=== PATIENT | male | born 1955 | race Caucasian/White ===

== ENCOUNTER 2021-04-13 15:03 | Inpatient (IN) ==
[2021-04-13] MEDS ORDERED: ceFAZolin 2,000 MG/50 ML DUPLEX IV ONE (16:30)
[2021-04-13] MEDS ORDERED: LIDOCAINE 2% 5 ML VIAL ONE (16:37)
[2021-04-13] MEDS ORDERED: fentaNYL 100 MCG/2 ML VIAL ONE (16:37)
[2021-04-13] MEDS ORDERED: MIDAZOLAM 2 MG/2 ML VIAL ONE (16:37)
[2021-04-13] MEDS ORDERED: ETOMIDATE 40 MG/20 ML VIAL IV ONE (16:38)
[2021-04-13] MEDS ORDERED: propofoL 200 MG/20 ML VIAL IV ONE (16:38)
[2021-04-13] MEDS ORDERED: SUCCINYLCHOLINE 200 MG/10 ML VIAL ONE (16:38)
[2021-04-13] MEDS ORDERED: ePHEDrine 50 MG/ML VIAL ONE (17:16)
[2021-04-13] MEDS ORDERED: ceFAZolin 1,000 MG VIAL ONE (17:43)
[2021-04-13] MEDS ORDERED: SEVOFLURANE 1 UNIT/15 MINUTE INH ONE (17:51)
[2021-04-13] MEDS ORDERED: ACETAMINOPHEN INJ 1,000 MG/100 ML VIAL IV ONE (17:54)
[2021-04-13] MEDS ORDERED: ALBUTEROL 2.5 MG/3 ML NEB RESP TX PRN (17:56)
[2021-04-13] MEDS ORDERED: ONDANSETRON 4 MG/2 ML VIAL IV PRN (17:56)
[2021-04-13] MEDS ORDERED: DEXTROSE 50% 25 GM/50 ML VIAL IV PRN (18:07)
[2021-04-13] MEDS ORDERED: GLUCAGON 1 MG VIAL IM PRN (18:07)
[2021-04-13] MEDS: PIPERACILLIN/TAZOBACTAM 3,375 MG in SODIUM CHLORIDE 0.9% 100 ML IV SCH (19:45)
[2021-04-13 19:46] LABS: Basophils # 0.1 10*3/uL (0.0-0.2); Basophils % 0.3 % (0.0-0.8); Eosinophils # 0.1 10*3/uL (0.0-0.87); Eosinophils % 0.7 % (0.00-10.9); Hematocrit 30.1 VOL% (42.0-52.0); Hemoglobin 8.7 GM/DL (14.0-18.0); Immature Granulocytes Absolute 0.15 #; Lymphocytes # 1.3 10*3/uL (1.4-4.0); Lymphocytes % 8.5 % (21.2-54.2); Mean Corpuscular HGB Conc 28.9 GM/DL (32-36); Mean Corpuscular Volume 74.3 FL (87-102); Mean Platelet Volume 10.6 FL (9.6-12.0); Monocytes % 7.4 % (1.7-12.7); Neutrophils % 82.1 % (38.7-73.9); Platelet Count 436 T/CUMM (130-400); Red Blood Count 4.05 MC/CUMM (3.8-5.5); Red Cell Distribution Width 19.9 % (9.3-17.3); White Blood Count 15.6 T/CUMM (4-12)
[2021-04-13 20:05] LABS: Alanine Aminotransferase 32 U/L (16-61); Albumin 2.1 G/DL (3.4-5.0); Alkaline Phosphatase 136 U/L (45-117); Aspartate Amino Transferase 28 U/L (0-37); Bilirubin,Total < 0.39 MG/DL (0.2-1.0); Blood Urea Nitrogen 23 MG/DL (7-18); Calcium 8.9 MG/DL (8.5-10.1); Carbon Dioxide 24 MMOL/L (21-32); Estimated Glom Filtration Rate 87 ML/MIN; Glucose 202 MG/DL (74-106); Osmolality,Calculated 273.5 MOS/KG (273-304); Potassium 4.3 MMOL/L (3.5-5.1); Sodium 132 MMOL/L (136-145); Total Protein 6.3 G/DL (6.4-8.2)
[2021-04-13] MEDS: SIMVASTATIN 20 MG TABLET PO SCH (21:14)
[2021-04-13] MEDS: SERTRALINE 50 MG TABLET PO SCH (21:14)
[2021-04-14] MEDS: INSULIN LISPRO 100 UNIT/ML SUBCUT SCH ×4 (00:17→17:31)
[2021-04-14] MEDS: PIPERACILLIN/TAZOBACTAM 3,375 MG in SODIUM CHLORIDE 0.9% 100 ML IV SCH ×3 (02:08→18:27)
[2021-04-14] MEDS ORDERED: DEXAMETHASONE 4 MG/1 ML VIAL ONE (06:44)
[2021-04-14] MEDS ORDERED: LIDOCAINE 2% 5 ML VIAL ONE (06:44)
[2021-04-14] MEDS ORDERED: ONDANSETRON 4 MG/2 ML VIAL ONE (06:44)
[2021-04-14] MEDS ORDERED: propofoL 200 MG/20 ML VIAL IV ONE (06:44)
[2021-04-14] MEDS ORDERED: MIDAZOLAM 2 MG/2 ML VIAL ONE (06:44)
[2021-04-14] MEDS ORDERED: fentaNYL 100 MCG/2 ML VIAL ONE (06:44)
[2021-04-14 06:46] LABS: Basophils # 0.1 10*3/uL (0.0-0.2); Basophils % 0.6 % (0.0-0.8); Eosinophils # 0.2 10*3/uL (0.0-0.87); Eosinophils % 1.7 % (0.00-10.9); Hematocrit 27.4 VOL% (42.0-52.0); Hemoglobin 8.1 GM/DL (14.0-18.0); Immature Granulocytes % 0.8 %; Immature Granulocytes Absolute 0.08 #; Lymphocytes # 0.7 10*3/uL (1.4-4.0); Lymphocytes % 6.9 % (21.2-54.2); Mean Corpuscular HGB Conc 29.6 GM/DL (32-36); Mean Corpuscular Volume 71.9 FL (87-102); Mean Platelet Volume 10.5 FL (9.6-12.0); Monocytes % 7.2 % (1.7-12.7); Neutrophils % 82.8 % (38.7-73.9); Platelet Count 435 T/CUMM (130-400); Red Blood Count 3.81 MC/CUMM (3.8-5.5); Red Cell Distribution Width 19.7 % (9.3-17.3); White Blood Count 9.8 T/CUMM (4-12)
[2021-04-14 06:47] LABS: Calcium 8.8 MG/DL (8.5-10.1); Osmolality,Calculated 276.4 MOS/KG (273-304); Potassium 4.5 MMOL/L (3.5-5.1)
[2021-04-14] MEDS ORDERED: SEVOFLURANE 1 UNIT/15 MINUTE INH ONE ×3 (06:47→08:53)
[2021-04-14] MEDS ORDERED: FAMOTIDINE 20 MG/2 ML VIAL IV STA (06:59)
[2021-04-14] MEDS ORDERED: PHENYLEPHRINE 1 MG/10 ML SYRINGE IV ONE (07:49)
[2021-04-14] MEDS ORDERED: ePHEDrine 50 MG/ML VIAL ONE (07:49)
[2021-04-14] MEDS ORDERED: SODIUM CHLORIDE 0.9% 1,000 ML IV ONE (08:12)
[2021-04-14] MEDS ORDERED: ROPIVACAINE 0.5% 30 ML VIAL ONE (08:16)
[2021-04-14] MEDS: LACTATED RINGERS 1,000 ML IV SCH ×2 (08:49→17:33)
[2021-04-14] MEDS: INSULIN GLARGINE 100 UNIT/ML SUBCUT SCH (08:49)
[2021-04-14] MEDS: AMIODARONE 200 MG TABLET PO SCH (12:09)
[2021-04-14 16:13] LABS: Basophils % 0.5 % (0.0-0.8); Hematocrit 25.4 VOL% (42.0-52.0); Hemoglobin 7.7 GM/DL (14.0-18.0); Immature Granulocytes Absolute 0.09 #; Lymphocytes # 0.5 10*3/uL (1.4-4.0); Lymphocytes % 5.2 % (21.2-54.2); Mean Corpuscular HGB Conc 30.3 GM/DL (32-36); Mean Corpuscular Volume 73.4 FL (87-102); Mean Platelet Volume 10.5 FL (9.6-12.0); Monocytes % 2.2 % (1.7-12.7); Neutrophils % 91.1 % (38.7-73.9); Platelet Count 420 T/CUMM (130-400); Red Blood Count 3.46 MC/CUMM (3.8-5.5); Red Cell Distribution Width 19.8 % (9.3-17.3); White Blood Count 8.6 T/CUMM (4-12)
[2021-04-14 16:40] LABS: Anisocytosis 2+; Band Neutrophils 1 % (0-10); Microcytosis 2+; Platelet Estimate Increased; Segmented Neutrophils 99 % (50-85); Total Cells Counted 100; Toxic Granulation 1+
[2021-04-14 16:41] LABS: Dohle Bodies Few
[2021-04-14] MEDS: MIDODRINE 5 MG TABLET PO SCH (17:30)
[2021-04-14] MEDS: FAMOTIDINE 20 MG/2 ML VIAL IV SCH (21:49)
[2021-04-14] MEDS: SIMVASTATIN 20 MG TABLET PO SCH (21:51)
[2021-04-14] MEDS: SERTRALINE 50 MG TABLET PO SCH (21:52)
[2021-04-14] MEDS: lamoTRIgine 25 MG TABLET PO SCH (21:52)
[2021-04-15] MEDS: INSULIN LISPRO 100 UNIT/ML SUBCUT SCH ×6 (01:48→22:58)
[2021-04-15] MEDS: LACTATED RINGERS 1,000 ML IV SCH ×3 (03:00→23:00)
[2021-04-15] MEDS: PIPERACILLIN/TAZOBACTAM 3,375 MG in SODIUM CHLORIDE 0.9% 100 ML IV SCH ×3 (03:04→17:56)
[2021-04-15 06:23] LABS: Basophils % 0.5 % (0.0-0.8); Eosinophils % 0.5 % (0.00-10.9); Hematocrit 25.8 VOL% (42.0-52.0); Hemoglobin 7.6 GM/DL (14.0-18.0); Immature Granulocytes % 1.4 %; Immature Granulocytes Absolute 0.11 #; Lymphocytes # 0.8 10*3/uL (1.4-4.0); Lymphocytes % 9.7 % (21.2-54.2); Mean Corpuscular HGB Conc 29.5 GM/DL (32-36); Mean Corpuscular Volume 72.3 FL (87-102); Mean Platelet Volume 10.3 FL (9.6-12.0); Monocytes % 9.1 % (1.7-12.7); Neutrophils % 78.8 % (38.7-73.9); Platelet Count 441 T/CUMM (130-400); Red Blood Count 3.57 MC/CUMM (3.8-5.5); Red Cell Distribution Width 19.9 % (9.3-17.3); White Blood Count 7.8 T/CUMM (4-12)
[2021-04-15 06:41] LABS: Calcium 8.5 MG/DL (8.5-10.1); Osmolality,Calculated 284.8 MOS/KG (273-304); Potassium 4.5 MMOL/L (3.5-5.1)
[2021-04-15] MEDS: FAMOTIDINE 20 MG/2 ML VIAL IV SCH ×2 (08:11→22:49)
[2021-04-15] MEDS: MIDODRINE 5 MG TABLET PO SCH ×3 (08:11→17:56)
[2021-04-15] MEDS: AMIODARONE 200 MG TABLET PO SCH (08:11)
[2021-04-15] MEDS: DUTASTERIDE 0.5 MG CAPSULE PO SCH (08:11)
[2021-04-15] MEDS: INSULIN GLARGINE 100 UNIT/ML SUBCUT SCH (08:14)
[2021-04-15] MEDS: SIMVASTATIN 20 MG TABLET PO SCH (22:51)
[2021-04-15] MEDS: SERTRALINE 50 MG TABLET PO SCH (22:51)
[2021-04-15] MEDS: lamoTRIgine 25 MG TABLET PO SCH (22:52)
[2021-04-16] MEDS: PIPERACILLIN/TAZOBACTAM 3,375 MG in SODIUM CHLORIDE 0.9% 100 ML IV SCH ×2 (02:21→09:33)
[2021-04-16 05:09] LABS: Calcium 8.7 MG/DL (8.5-10.1); Osmolality,Calculated 273.2 MOS/KG (273-304); Potassium 4.3 MMOL/L (3.5-5.1)
[2021-04-16 07:58] LABS: Basophils # 0.1 10*3/uL (0.0-0.2); Basophils % 0.8 % (0.0-0.8); Eosinophils # 0.3 10*3/uL (0.0-0.87); Eosinophils % 4.1 % (0.00-10.9); Hematocrit 27.6 VOL% (42.0-52.0); Hemoglobin 8.1 GM/DL (14.0-18.0); Immature Granulocytes % 1.8 %; Immature Granulocytes Absolute 0.11 #; Lymphocytes # 1.1 10*3/uL (1.4-4.0); Mean Corpuscular HGB Conc 29.3 GM/DL (32-36); Mean Corpuscular Volume 71.7 FL (87-102); Monocytes % 8.8 % (1.7-12.7); Neutrophils % 66.5 % (38.7-73.9); Platelet Count 522 T/CUMM (130-400); Red Blood Count 3.85 MC/CUMM (3.8-5.5); Red Cell Distribution Width 19.9 % (9.3-17.3); White Blood Count 6.2 T/CUMM (4-12)
[2021-04-16 08:22] LABS: Eosinophils 6 % (0-10); Lymphocytes 14 % (20-55); Platelet Estimate Increased; Segmented Neutrophils 71 % (50-85); Total Cells Counted 100
[2021-04-16 08:23] LABS: Hypochromasia 1+; Microcytosis 1+
[2021-04-16 08:30] LABS: Calcium 8.6 MG/DL (8.5-10.1); Potassium 4.4 MMOL/L (3.5-5.1)
[2021-04-16] MEDS ORDERED: INSULIN GLARGINE 100 UNIT/ML SUBCUT SCH (09:00)
[2021-04-16] MEDS: LACTATED RINGERS 1,000 ML IV SCH (09:23)
[2021-04-16] MEDS: FAMOTIDINE 20 MG/2 ML VIAL IV SCH (09:24)
[2021-04-16] MEDS: INSULIN LISPRO 100 UNIT/ML SUBCUT SCH ×2 (09:24→11:57)
[2021-04-16] MEDS: DUTASTERIDE 0.5 MG CAPSULE PO SCH (09:25)
[2021-04-16] MEDS: AMIODARONE 200 MG TABLET PO SCH (09:25)
[2021-04-16] MEDS: MIDODRINE 5 MG TABLET PO SCH ×2 (09:25→11:57)
[2021-04-16 11:49] VITALS: BP 146/68
== END 2021-04-16 15:04 | DRG 717 ==
LOC: N.ED 15:03 → N.ICU 16:45 → SUATTDRO 17:57 → N.EDINP 17:57 → N.ICU 18:42 → N.5E 04-14 14:50
PROVIDERS: ADMIT Internal Medicine; ATTEND Internal Medicine